=== PATIENT | female | born 1970 | race Caucasian/White ===

== ENCOUNTER 2018-05-06 16:19 | Emergency (ER) | payer MEDICAID, OTHER ==
[2018-05-06 16:49] VITALS: BP 133/75
[2018-05-06] MEDS ORDERED: Bupivacaine 0.25%/EPINEPHrine 1:200,000 30 ML SDV INJECT ONE (17:41)
[2018-05-06] MEDS ORDERED: Lidocaine 1% 30 ML SDV INJECT ONE (17:55)
[2018-05-06] MEDS ORDERED: Cephalexin 500 MG Cap ONE (18:28)
--- NOTE | 2018-05-06 18:39 | EDM.PDOC ---
Scribed by Martha Colvin 05/06/18 1839 for Josh Fragoso PA ED HPI GENERAL MEDICAL PROBLEM - General Chief Complaint: Skin Complaint Stated Complaint: SPIDER BITE Time Seen by Provider: 05/06/18 17:16 Source of Information: Reports: Patient, RN, RN Notes Reviewed History Limitations: Reports: No Limitations - History of Present Illness INITIAL COMMENTS - FREE TEXT/NARRATIVE: Patient complains of right buttock pain with erythema, induration and increased pain. Onset: Gradual Duration: Getting Worse Location: Reports: Other (right buttock) Quality: Reports: Ache Severity: Moderate Improves with: Reports: None Worsens with: Reports: None Associated Symptoms: Reports: No Other Symptoms Right Upper Leg Pain Score (Numeric/FACES): 8 - Related Data Allergies Allergy/AdvReac Type Severity Reaction Status Date / Time sulfamethoxazole Allergy Hives Verified 05/06/18 18:24 [From Bactrim] trimethoprim [From Bactrim] Allergy Hives Verified 05/06/18 18:24 Home Meds: Home Meds amLODIPine [Norvasc] 5 mg PO DAILY #30 tablet 10/25/16 [Rx] metFORMIN HCl [Glucophage] 1,000 mg PO BID #30 tablet 10/25/16 [Rx] traZODone HCl [Trazodone HCl] 100 mg PO DAILY 05/06/18 [History] Past Medical History HEENT History: Reports: None Cardiovascular History: Reports: Hypertension Other Cardiovascular History: history of CHF Respiratory History: Reports: None Gastrointestinal History: Reports: None Genitourinary History: Reports: None SECURITY ESCORT History: Reports: None Musculoskeletal History: Reports: None Neurological History: Reports: None Other Neuro History: has head ache at this time with numbness in arms Psychiatric History: Reports: None Endocrine/Metabolic History: Reports: Diabetes, Type II Other Immunologic History: has hepatitus C Other Dermatologic History: abcesses in arms d/t drug use - Infectious Disease History Infectious Disease History: Reports: Hepatitis C - Past Surgical History HEENT Surgical History: Reports: Adenoidectomy, Tonsillectomy Musculoskeletal Surgical History: Reports: None Social & Family History - Family History Family Medical History: Noncontributory Endocrine/Metabolic: Reports: Diabetes, type II - Tobacco Use Smoking Status *Q: Current Every Day Smoker Years of Tobacco use: 38 Packs/Tins Daily: 0.5 - Caffeine Use Caffeine Use: Reports: Coffee, Tea - Recreational Drug Use Recreational Drug Use: Yes Drug Use in Last 12 Months: Yes Recreational Drug Type: Reports: Methamphetamine Other Recreational Drug Type: quit 5 weeks ago ED ROS GENERAL - Review of Systems Review Of Systems: ROS reveals no pertinent complaints other than HPI. ED EXAM, SKIN/RASH Exam: See Below Exam Limited By: No Limitations General Appearance: Alert, WD/WN, No Apparent Distress Eye Exam: Bilateral Eye: Normal Inspection Ears: Normal External Exam, Normal Canal, Hearing Grossly Normal, Normal TMs Nose: Normal Inspection, Normal Mucosa, No Blood Throat/Mouth: Normal Inspection, Normal Lips, Normal Teeth, Normal Gums, Normal Oropharynx, Normal Voice, No Airway Compromise Head: Atraumatic, Normocephalic Neck: Normal Inspection, Supple, Non-Tender, Full Range of Motion Respiratory/Chest: No Respiratory Distress, Lungs Clear, Normal Breath Sounds, No Accessory Muscle Use, Chest Non-Tender Cardiovascular: Normal Peripheral Pulses, Regular Rate, Rhythm, No Edema, No Gallop, No JVD, No Murmur, No Rub GI/Abdominal: Normal Bowel Sounds, Soft, Non-Tender, No Organomegaly, No Distention, No Abnormal Bruit, No Mass (Female) Exam: Deferred Rectal (Female) Exam: Deferred Back Exam: Normal Inspection, Full Range of Motion, NT Extremities: Normal Inspection, Normal Range of Motion, Non-Tender, No Pedal Edema, Normal Capillary Refill Neurological: Alert, Oriented, CN II-XII Intact, Normal Cognition, Normal Gait, Normal Reflexes, No Motor/Sensory Deficits Psychiatric: Normal Affect, Normal Mood Skin: Other (right buttock with erythema and induration) Lymphatic: No Adenopathy ED SKIN PROCEDURES - I&D Site: Right buttock Skin Prep: Providone-Iodine (Betadine), Isopropyl Alcohol (Alcohol) Local Anesthesia: Lidocaine: 1% Plain Local Anesthetic Volume: 4cc Area Incised With: 15 Blade Drainage: Purulent, Bloody, Moderate Amount Probed to Break Up Loculations: Yes Packed With: None Sterile Dressinx4(s) Complications: No Course - Vital Signs Last Recorded V/S: Last Vital Signs Temp 37.1 C 05/06/18 16:48 Pulse 104 H 05/06/18 16:48 Resp 16 07/14/18 16:48 BP 133/75 05/06/18 16:48 Pulse Ox 98 05/06/18 16:48 - Orders/Labs/Meds Orders: Active Orders 24 hr Category Date Time Status CULTURE WOUND [RM] Stat Lab 05/06/18 18:20 Ordered Meds: Medications Discontinued Medications Generic Name Dose Route Start Last Admin Trade Name Vincent PRN Reason Stop Dose Admin Bupivacaine HCl/Epinephrine Bitart 30 ml 05/06/18 17:41 Marcaine 0.25%/Epinephrine 1:200,000 INJECT 05/06/18 17:42 ONETIME ONE Lidocaine HCl 30 ml 05/06/18 17:55 05/06/18 18:03 Xylocaine-Mpf 1% INJECT 05/06/18 17:56 30 ml ONETIME ONE Administration Departure - Departure Time of Disposition: 18:39 Disposition: Home, Self-Care 01 Condition: Fair Clinical Impression: Abscess - Discharge Information *PRESCRIPTION DRUG MONITORING PROGRAM REVIEWED*: Not Applicable *COPY OF PRESCRIPTION DRUG MONITORING REPORT IN PATIENT FRANCISCO: Not Applicable Instructions: Incision and Drainage, Care After, Skin Abscess, [id number] Forms: ED Department Discharge Care Plan Goals: The patient was advised of the examination results during the visit. The abscess was incised, drained and packed during the visit. The patient was given 2 doses of Keflex to take 1 tonight and 1 in the morning. The patient was also given a script for Keflex (500 mg) #40 to take 1 by mouth 4 times per day. The patient should have her packing changed in 2 days. If the patient has any additional symptoms or concerns, the patient should follow-up with her primary car facility or return to the emergency department. - My Orders Last 24 Hours: My Active Orders 05/06/18 18:20 CULTURE WOUND [RM] Stat - Assessment/Plan Last 24 Hours: My Active Orders 05/06/18 18:20 CULTURE WOUND [RM] Stat I have read and agree with the documentation that has been completed regarding this visit. By signing this record, I attest that the documentation was completed in my physical presence and is an accurate record of the encounter.
== END 2018-05-06 18:45 | disposition home or self-care (01) ==
LOC: DL.ED 16:19
DX: L02.31 Cutaneous abscess of buttock (principal); E11.9 Type 2 diabetes mellitus without complications; F17.210 Nicotine dependence, cigarettes, uncomplicated; I10 Essential (primary) hypertension; Z88.2 Allergy status to sulfonamides; Z88.1 Allergy status to other antibiotic agents; Z79.84 Long term (current) use of oral hypoglycemic drugs
CPT/HCPCS: 10060; 87070; 87077; 87186; 99283; A9270